=== PATIENT | female | born 1970 | race Caucasian/White ===

== ENCOUNTER 2019-04-27 06:17 | Day surgery (SDC) | payer OTHER, SELFPAY ==
[2019-04-20 12:42] VITALS: BMI 23.3
[2019-04-27] VITALS (7 sets, daily range): BP systolic 123–145; BP diastolic 61–85; PULSE 72–77; RESP 12–16; TEMP 34.7–37.1; O2SAT 97–100; BMI 23.6
--- NOTE | 2019-04-27 | PATH_ITS ---
[facility] Accession Number: [id number] . 01 Material submitted: . uterus - UTERINE BIOPSIES . 02 Diagnosis: Uterine Biopsies: Portions of secretory endometrium; negative for glandular hyperplasia, cytologic atypia or malignancy. Occasional fragments of myometrium are present; negative for atypia or malignancy. MRV 05/01/2019 0945 Local . 02 Electronically signed: . Bianka Crouch MD, Pathologist NPI- [id number] . 01 Gross description: . Received in formalin, labeled uterine biopsies, are multiple fragments of sheppard-pink rubbery tissue (6.5 x 2.8 x 0.5 cm in aggregate). Entirely submitted in cassettes A1-A3. ([id number]) /[facility] 04/28/2019 1507 Local . 02 Pathologist provided ICD-10: N92.0 . 02 CPT . 430829 Performed at: 01 [facility] [address] [facility], [place], [place] [id number] MD Rodrigo Kline MD Phone: [phone] Performed at: 02 [facility] [address] [place], [place] [id number] MD Kati Avendano MD Phone: [phone]
--- NOTE | 2019-04-27 07:26 | PM.PREOP ---
Pre-operative Note Interval Note History & Physical reviewed/Exam performed by Physician: Yes Changes to H&P: No H&P completed within 30 days and has changed as indicated here:: See out patient note from 04/24/2019
[2019-04-27] MEDS: LACTATED RINGERS 1,000 ML 42 ML IV (07:27)
--- NOTE | 2019-04-27 08:11 | SUR.OPER ---
Prone on padded OR bed, head in foam head support, gel chest rolls, gel pad under knees, pillow under lower legs, toes free of pressure, arms secured on padded arm boards at <90 degrees abduction. Safety belt at thigh.
--- NOTE | 2019-04-27 08:49 | PM.OP.1 ---
Operative Date/Time/Diagnoses Date of procedure: 04/27/19 Time of procedure: 08:49 Pre-op diagnosis: Menorrhagia Post-op diagnosis: same Procedure & Clinicians Procedure: Hysteroscopy with endometrial biopsies Same procedure as scheduled: Yes Indications: Menorrhagia Surgeon: Lourdes Nagy Click Yes if Unassisted: Yes Anesthesia Type: General Operative Notes Findings: No specific endometrial pathology. Possible adenomyosis. Closure Type: not applicable Specimen(s): other (Endometrial biopsies) Estimated Blood Loss (mL): 5 Blood products transfused: none Procedure in detail: The patient was brought to the operating room where she underwent general anesthesia. She was placed in low stirrups She was prepped and draped in usual sterile fashion with pulsatile stockings in place and functional, warming in place. No antibiotics were indicated. Her bladder was drained with in and out catheter. A check system was reviewed with the staff in the room prior to the procedure. A single-tooth tenaculum was placed on the anterior lip of the cervix and the uterus dilated to #8 Hegar dilator. The hysteroscope was placed into the uterus with a sorbitol solution running and under constant suction. The resecting loop set at 80 W of cutting was used to remove areas of endometrium that were sent to pathology. The patient went to recovery room in good condition counts of instruments and sponges were correct. Estimated blood loss less than 5 mL. The sorbitol solution I=O approximately 3000 mL. Complications: none Post-operative Condition: stable Disposition: same day surgery Plan for aftercare: Follow-up in 2 weeks
== END 2019-04-27 10:15 | disposition home or self-care (01) ==
PROVIDERS: PCP Family Medicine; Visit Provider Specialist
PROC: 0UDB8ZZ Extraction of Endometrium, Via Natural or Artificial Opening Endoscopic (ICD-10-PCS; CPT 58558; principal; 2019-04-27 07:45)
DX: N92.0 Excessive and frequent menstruation with regular cycle (principal)
CPT/HCPCS: 58558; J1100; J1885; J2405; J2704; J3010